=== PATIENT | male | born 1990 | race Caucasian/White ===

== ENCOUNTER → 2018-06-07 | Outpatient (CLI) | payer OTHER ==
--- NOTE | 2018-06-07 16:13 | RADIOLOGY IMAGING REPORT ---
[place] [facility] [place] NAME: Andre Ferrera : 1990 MR: [id number] V: [id number] EXAM DATE: ORDERING PHYSICIAN: LIANA PORTER TECHNOLOGIST: Location: [facility] Patient: Andre Ferrera : 1990 Visit/Account:[id number] Date of Sevice: 06/07/2018 Exam type: ELBOW 3 VIEW LEFT History: Pain since fall on Tuesday Comparison: None Findings: There is no evidence of acute fracture or dislocation involving the left elbow. There is soft tissue swelling/effusion over the posterior aspect the olecranon.. IMPRESSION: 1. Soft tissue swelling/effusion over the posterior aspect the olecranon An acute fracture dislocation is not seen Report Dictated By: Yuly Velasquez MD at 06/07/2018 4:08 PM Report E-Signed By: Yuly Velasquez MD at 06/07/2018 4:10 PM WSN:[email or web address]
== END ==
LOC: RAD 13:37
PROVIDERS: ATTEND Physician Assistant
DX: M25.522 Pain in left elbow (principal); M25.421 Effusion, right elbow